=== PATIENT | female | born 1990 | race Caucasian/White ===

== ENCOUNTER 2018-02-06 18:18 | Emergency (ER) | payer MEDICAID ==
[~2018-02-06] VITALS: Ht 160 cm; Wt 87.1 kg
[2018-02-06 18:27] VITALS: BP 112/68
--- NOTE | 2018-02-06 19:01 | NUR ---
PT AMBULATED TO BED 8
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
--- NOTE | 2018-02-06 20:35 | NUR ---
PT TAKEN TO XR
[2018-02-06] MEDS ORDERED: ACETAMINOPHEN EXTRA STRENGTH 500 MG TAB PO ONE (20:55)
[2018-02-06] MEDS ORDERED: IBUPROFEN 600 MG TAB PO ONE (20:55)
[2018-02-06 21:23] VITALS: BP 114/72
--- NOTE | 2018-02-06 21:24 | NUR ---
Patient discharged with v/s stable. Written and verbal after care instructions given and explained. Patient alert, oriented and verbalized understanding of instructions. Ambulatory with steady gait. All questions addressed prior to discharge. ID band removed. Patient advised to follow up with PMD. Rx of NORCO, IBUPROFEN given. Patient educated on indication of medication including possible reaction and side effects. Opportunity to ask questions provided and answered.
== END 2018-02-06 21:23 | disposition home or self-care (01) ==
LOC: MED 18:18
DX: S23.41XA Sprain of ribs, initial encounter (principal); V43.52XA Car driver injured in collision with other type car in traffic accident, initial encounter; Y93.I9 Activity, other involving external motion; Y92.488 Other paved roadways as the place of occurrence of the external cause; Y99.8 Other external cause status
CPT/HCPCS: 71046; 81002; 81025; 99284

== ENCOUNTER 2018-03-13 17:17 | Emergency (ER) | payer MEDICAID ==
[~2018-03-13] VITALS: Ht 160 cm; Wt 81.6 kg
[2018-03-13 17:26] VITALS: BP 122/75
[2018-03-13 18:20] VITALS: BP 125/82
== END 2018-03-13 18:20 | disposition home or self-care (01) ==
LOC: MED 17:17
DX: J03.90 Acute tonsillitis, unspecified (principal)
CPT/HCPCS: 99283

== ENCOUNTER 2018-06-17 16:29 | Emergency (ER) | payer MEDICAID ==
[~2018-06-17] VITALS: Ht 160 cm; Wt 90.7 kg
[2018-06-17 16:40] VITALS: BP 111/60
--- NOTE | 2018-06-17 16:51 | NUR ---
PT TO ER BED 11
--- NOTE | 2018-06-17 17:00 | NUR ---
c/o right ear lobe pain ; earring in place moist cough, congestion. VSS; PATIENT POSITIONED FOR COMFORT; HOB ELEVATED; BEDRAILS UP X1; BED DOWN. ER MD MADE AWARE OF PT STATUS.
[2018-06-17] MEDS ORDERED: LIDOCAINE 1% 500 MG/50 ML VIAL INJ SCH (18:05)
[2018-06-17] MEDS ORDERED: ACETAMINOPHEN EXTRA STRENGTH 500 MG TAB PO ONE (18:05)
[2018-06-17] MEDS ORDERED: LIDOCAINE MPF 1% 5mL VIAL ONE (18:52)
--- NOTE | 2018-06-17 19:22 | NUR ---
report given to sharyn Turner
[2018-06-17] MEDS ORDERED: BACITRACIN OINT 500 UNITS/GM PKT TP ONE (19:25)
[2018-06-17 19:45] VITALS: BP 118/65
--- NOTE | 2018-06-17 19:45 | NUR ---
Patient discharged with v/s stable. Written and verbal after care instructions given and explained. Patient alert, oriented and verbalized understanding of instructions. Ambulatory with steady gait. All questions addressed prior to discharge. ID band removed. Patient advised to follow up with PMD. Rx of BACITRACIN 500UNIT/G TOPICAL OINTMENT, PROMETHAZINE DM 6.25MG-15MG/5ML SYRUP, AND KEFLEX 500 MG given. Patient educated on indication of medication including possible reaction and side effects. Opportunity to ask questions provided and answered.
== END 2018-06-17 19:45 | disposition home or self-care (01) ==
LOC: MED 16:29
DX: S00.451A Superficial foreign body of right ear, initial encounter (principal); J06.9 Acute upper respiratory infection, unspecified; X58.XXXA Exposure to other specified factors, initial encounter; Y93.89 Activity, other specified; Y92.89 Other specified places as the place of occurrence of the external cause; Y99.8 Other external cause status
CPT/HCPCS: 10120; 99284; J2001

== ENCOUNTER 2018-06-19 16:58 | Emergency (ER) | payer MEDICAID ==
[~2018-06-19] VITALS: Ht 160 cm; Wt 90.3 kg
[2018-06-19 17:15] VITALS: BP 104/68
--- NOTE | 2018-06-19 17:23 | NUR ---
PRESENTS TO ED FOR ALTERNATE MEDICATION THAT WAS PRESCRIBED BY DR. DAI ON SATURDAY. PT STATES PHARMACY TOLD HER THAT MED IS ON BACK ORDER. PT WANTS DIFFERENT PRESCRIPTION. HX: DENIES RX: AMOXICILLIN
--- NOTE | 2018-06-19 17:25 | NUR ---
Patient being evaluated by physician at bedside.
[2018-06-19 17:26] VITALS: BP 104/68
--- NOTE | 2018-06-19 17:27 | NUR ---
Patient discharged with v/s stable. Written and verbal after care instructions given and explained. Patient alert, oriented and verbalized understanding of instructions. Ambulatory with steady gait. All questions addressed prior to discharge. ID band removed. Patient advised to follow up with PMD. Rx of CODEINE PHOSPHATE/PROMETHAZINE given. Patient educated on indication of medication including possible reaction and side effects. Opportunity to ask questions provided and answered.
== END 2018-06-19 17:27 | disposition home or self-care (01) ==
LOC: MED 16:58
DX: Z76.0 Encounter for issue of repeat prescription (principal)
CPT/HCPCS: 99283

== ENCOUNTER 2018-10-01 07:16 | Emergency (ER) | payer MEDICAID ==
[~2018-10-01] VITALS: Ht 160 cm; Wt 92.5 kg
[2018-10-01 07:21] VITALS: BP 121/83
--- NOTE | 2018-10-01 07:43 | NUR ---
PATIENT PRESENTS TO ED WITH C/O COUGH X 4 DAYS. +BODYACHES, +DIARRHEA, +NAUSEA. DENIES FEVER; ORAL TEMP 98.4 AT THIS TIME. PT STATES CHEST HURTS WHEN COUGHING. PAIN LEVEL OF 8/10; VSS; PATIENT POSITIONED FOR COMFORT; HOB ELEVATED; BEDRAILS UP X1; BED DOWN. ER MD TO EVALUATE PT.
--- NOTE | 2018-10-01 07:44 | NUR ---
Dr Razo evaluating pt at this time.
[2018-10-01] MEDS ORDERED: ALBUTEROL 0.083% 2.5 MG/3 ML NEBU INH ONE (07:45)
[2018-10-01] MEDS ORDERED: predniSONE 20 MG TAB PO ONE (07:45)
--- NOTE | 2018-10-01 08:00 | NUR ---
Respiratory Therapist at bedside for breathing treatment.
--- NOTE | 2018-10-01 08:01 | NUR ---
ADMITTING DX: COUGH HX: DENIES ASTMA COPD AWAKE AND ALERT VERBALLY RESPONSIVE EDUCATION PROVIDED WOTH ACKNOWLEDGEMENT ON HHN THERAPY AND RESPIRATORY DRUG FOREMENTIONED GIVEN ORDERED ENCOURAGED PATIENT FOR INTERMITTENT DEEP BREATHING DURING THERAPY
[2018-10-01 08:04] LABS: APPEARANCE,URINE HAZY (CLEAR); BILIRUBIN,URINE NEGATIVE (NEGATIVE); BLOOD, URINE 1+ (NEGATIVE); COLOR,URINE ORANGE (YELLOW); LEUKOCYTE ESTERASE ,URINE 1+ (NEGATIVE); NITRITE, URINE NEGATIVE (NEGATIVE); UGLUCOSE NEGATIVE (NEGATIVE)
[2018-10-01 08:20] LABS: RBC,URINE 0-5 /HPF (0-5); WBC,URINE 0-5 /HPF (0-5)
--- NOTE | 2018-10-01 09:08 | NUR ---
REPORT GIVEN TO MISHA DOMINGO. TRANSFER OF CARE AT THIS TIME.
--- NOTE | 2018-10-01 09:46 | NUR ---
Patient discharged with v/s stable. Written and verbal after care instructions given and explained. Patient alert, oriented and verbalized understanding of instructions. Ambulatory with steady gait. All questions addressed prior to discharge. Patient advised to follow up with PMD. Rx of Prednisone and Albuterol given. Patient educated on indication of medication including possible reaction and side effects. Opportunity to ask questions provided and answered.
[2018-10-01 09:47] VITALS: BP 113/56
== END 2018-10-01 09:46 | disposition home or self-care (01) ==
LOC: MED 07:16
DX: J06.9 Acute upper respiratory infection, unspecified (principal); Z86.73 Personal history of transient ischemic attack (TIA), and cerebral infarction without residual deficits; Z79.899 Other long term (current) drug therapy
CPT/HCPCS: 71045; 81001; 81025; 87086; 94640; 99284; J7512; J7613; Q0092

== ENCOUNTER 2018-12-29 16:32 | Emergency (ER) | payer MEDICAID ==
[~2018-12-29] VITALS: Ht 160 cm; Wt 92.2 kg
[2018-12-29 16:53] VITALS: BP 123/50
[2018-12-29 19:41] LABS: BASOPHILS # (AUTO) 0.1 K/uL (0.00-0.22); BASOPHILS % (AUTO) 0.7 % (0.0-2.0); EOSINOPHILS # (AUTO) 0.1 K/uL (0-0.4); EOSINOPHILS % (AUTO) 0.9 % (0.0-4.0); HEMOGLOBIN 13.5 g/dL (12.0-16.0); LYMPHOCYTES # (AUTO) 2.3 K/uL (2.5-16.5); LYMPHOCYTES % (AUTO) 22.4 % (20.5-51.1); MEAN CORPUSCULAR HEMOGLOBIN 32 pg (27-31); MEAN CORPUSCULAR HGB CONC 33 g/dL (33-37); MEAN CORPUSCULAR VOLUME 95.3 fL (80-94); MONOCYTES # (AUTO) 0.5 K/uL (0.8-1.0); MONOCYTES % (AUTO) 4.7 % (1.7-9.3); NEUTROPHILS # (AUTO) 7.3 K/uL (1.8-7.7); NEUTROPHILS % (AUTO) 71.3 % (42.2-75.2); PLATELET COUNT (AUTO) 246 K/uL (140-450); RED CELL DISTRIBUTION WIDTH 13.8 % (11.6-13.7); WHITE BLOOD COUNT (AUTO) 10.2 K/uL (4.8-10.8)
[2018-12-29 20:08] LABS: ALBUMIN 3.7 g/dL (3.4-5.0); ANION GAP 13.8 (8-16); CARBON DIOXIDE 25.3 mmol/L (21-32); CREATININE 0.9 mg/dL (0.6-1.3); POTASSIUM 4.1 mmol/L (3.5-5.1); TOTAL BILIRUBIN 0.3 mg/dL (0.0-1.0)
[2018-12-29] MEDS ORDERED: CYCLOBENZAPRINE 10 MG TAB PO ONE (21:25)
[2018-12-29] MEDS ORDERED: KETOROLAC 30 MG/ML VIAL IM ONE (21:25)
[2018-12-29] MEDS ORDERED: ACETAMINOPHEN EXTRA STRENGTH 500 MG TAB PO STA (21:32)
[2018-12-29 21:52] VITALS: BP 131/65
== END 2018-12-29 21:52 | disposition home or self-care (01) ==
LOC: MED 16:32
DX: R10.9 Unspecified abdominal pain (principal); M54.5 Low back pain; Z86.79 Personal history of other diseases of the circulatory system
CPT/HCPCS: 36415; 80053; 83690; 85025; 99283; J1885

== ENCOUNTER 2019-10-19 07:12 | Emergency (ER) | payer MEDICAID ==
[~2019-10-19] VITALS: Ht 160 cm; Wt 88.9 kg
[2019-10-19 07:25] VITALS: BP 121/83
--- NOTE | 2019-10-19 07:35 | NUR ---
29 YO FEMALE CO LOWER BACK PAIN SINCE TODAY. PT STATES THAT SHE WAS DRINKING HEAVILY THIS WEEKEND AND DID NOT DRINK ANY WATER. PAIN IS 10/10 ON LOWER BACK BOTH SIDES. NO PAIN WITH URINATION. NO PMH AND NO RX MEDS.
[2019-10-19] MEDS ORDERED: KETOROLAC 60 MG/2 ML VIAL IM ONE (07:45)
[2019-10-19] MEDS ORDERED: ACETAMINOPHEN EXTRA STRENGTH 500 MG TAB PO ONE (08:40)
[2019-10-19 09:38] LABS: APPEARANCE,URINE HAZY (CLEAR); BILIRUBIN,URINE NEGATIVE (NEGATIVE); BLOOD, URINE 1+ (NEGATIVE); COLOR,URINE YELLOW (YELLOW); LEUKOCYTE ESTERASE ,URINE NEGATIVE (NEGATIVE); NITRITE, URINE NEGATIVE (NEGATIVE); UGLUCOSE NEGATIVE (NEGATIVE); WBC,URINE 0-5 /HPF (0-5)
[2019-10-19 09:54] VITALS: BP 121/83
--- NOTE | 2019-10-19 09:54 | NUR ---
Patient discharged with v/s stable. Written and verbal after care instructions given and explained. Patient alert, oriented and verbalized understanding of instructions. Ambulatory with steady gait. All questions addressed prior to discharge. ID band removed. Patient advised to follow up with PMD. Rx of BACTRIM AND NAPROSYN given. Patient educated on indication of medication including possible reaction and side effects. Opportunity to ask questions provided and answered.
== END 2019-10-19 09:54 | disposition home or self-care (01) ==
LOC: MED 07:12
DX: R35.0 Frequency of micturition (principal); F12.10 Cannabis abuse, uncomplicated; R01.1 Cardiac murmur, unspecified
CPT/HCPCS: 81001; 81025; 96372; 99283; J1885

== ENCOUNTER 2019-12-16 09:00 | Emergency (ER) | payer MEDICAID ==
[~2019-12-16] VITALS: Ht 160 cm; Wt 85.3 kg
--- NOTE | 2019-12-16 09:12 | NUR ---
PT AMBULATED TO ER BED 05
[2019-12-16 09:15] VITALS: BP 114/73
--- NOTE | 2019-12-16 09:25 | NUR ---
DR VAN AT BEDSIDE
[2019-12-16] MEDS ORDERED: NACL 0.9% 1,000 ML IV ONE ×2 (09:30→10:50)
--- NOTE | 2019-12-16 09:30 | NUR ---
PT C/O N/V/D WITH LOWER ABDOMINAL DISCOMFORT. [facility] TEST WAS POSITIVE 2 WEEKS AGO. LMP BEGINNING OF OCTOBER. 5, 1 , 4 LIVING. 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 DENIES VAGINAL BLEEDING.
--- NOTE | 2019-12-16 09:42 | NUR ---
IV INSERTED AND LABS DRAWN BEDSIDE, NACL BOLUS STARTED
[2019-12-16 09:47] LABS: BASOPHILS # (AUTO) 0.1 K/uL (0.00-0.22); BASOPHILS % (AUTO) 1.1 % (0.0-2.0); EOSINOPHILS # (AUTO) 0.1 K/uL (0-0.4); EOSINOPHILS % (AUTO) 0.9 % (0.0-4.0); HEMATOCRIT 38.9 % (36-48); LYMPHOCYTES # (AUTO) 1.8 K/uL (2.5-16.5); LYMPHOCYTES % (AUTO) 21.8 % (20.5-51.1); MEAN CORPUSCULAR HEMOGLOBIN 32 pg (27-31); MEAN CORPUSCULAR HGB CONC 33 g/dL (33-37); MEAN CORPUSCULAR VOLUME 94.8 fL (80-94); MONOCYTES # (AUTO) 0.5 K/uL (0.8-1.0); MONOCYTES % (AUTO) 6.6 % (1.7-9.3); NEUTROPHILS # (AUTO) 5.7 K/uL (1.8-7.7); NEUTROPHILS % (AUTO) 69.6 % (42.2-75.2); PLATELET COUNT (AUTO) 224 K/uL (140-450); RED BLOOD CELL COUNT(AUTO) 4.11 MIL/uL (4.20-5.40); RED CELL DISTRIBUTION WIDTH 13.5 % (11.6-13.7); WHITE BLOOD COUNT (AUTO) 8.2 K/uL (4.8-10.8)
[2019-12-16 10:06] LABS: ALBUMIN 3.7 g/dL (3.4-5.0); ANION GAP 15.3 (8-16); CARBON DIOXIDE 22.9 mmol/L (21-32); CREATININE 0.8 mg/dL (0.6-1.3); POTASSIUM 4.2 mmol/L (3.5-5.1); TOTAL BILIRUBIN 0.6 mg/dL (0.0-1.0)
[2019-12-16 10:07] LABS: APPEARANCE,URINE HAZY (CLEAR); BILIRUBIN,URINE NEGATIVE (NEGATIVE); BLOOD, URINE 3+ (NEGATIVE); COLOR,URINE YELLOW (YELLOW); LEUKOCYTE ESTERASE ,URINE 3+ (NEGATIVE); NITRITE, URINE NEGATIVE (NEGATIVE); PH,URINE 7.5 (5.0-9.0); UGLUCOSE NEGATIVE (NEGATIVE)
--- NOTE | 2019-12-16 10:22 | NUR ---
PT STATES SOME RELIEF FROM NAUSEA, STATES SHE IS HUNGRY. INSTRUCTED TO WAIT FOR US RESULTS
--- NOTE | 2019-12-16 10:22 | NUR ---
PT INSTRUCTED THAT MORE URINE IS REQUIRED FOR CULTURE
--- NOTE | 2019-12-16 11:23 | NUR ---
PT STATES HER IV IS PAINFUL, IV REMOVED. PT STATES SHE DOESNT WANT SECOND BOLUS OF FLUIDS
--- NOTE | 2019-12-16 12:31 | NUR ---
VS STABLE. PT WAITING FOR US RESULTS
[2019-12-16] MEDS ORDERED: ACETAMINOPHEN 325 MG TAB PO ONE (13:00)
--- NOTE | 2019-12-16 13:30 | NUR ---
TYLENOL PO ADMINISTERED. PT TOLERATING WATER AND JELLO AT THIS TIME Addendum: 12/16/19 at 1338 by [email or web address] PT STATES LOWER AB CRAMPING
[2019-12-16] MEDS ORDERED: METOCLOPRAMIDE 10 MG/2 ML INJ VIAL IVP ONE (14:00)
--- NOTE | 2019-12-16 14:02 | NUR ---
PT STATES SHE JUST VOMITED IN RESTROOM, DR VAN NOTIFIED
[2019-12-16] MEDS ORDERED: METOCLOPRAMIDE 10 MG TAB PO ONE (14:05)
--- NOTE | 2019-12-16 14:49 | NUR ---
NADR, PAIN 05/18
--- NOTE | 2019-12-16 14:50 | NUR ---
PT TOLERATING CRACKERS AT THIS TIME
[2019-12-16 15:00] VITALS: BP 105/60
--- NOTE | 2019-12-16 15:00 | NUR ---
Patient discharged with v/s stable. Written and verbal after care instructions given and explained. Patient alert, oriented and verbalized understanding of instructions. Ambulatory with steady gait. All questions addressed prior to discharge. ID band removed. Patient advised to follow up with PMD. Rx of DICLEGIS given. Patient educated on indication of medication including possible reaction and side effects. Opportunity to ask questions provided and answered. PT GIVEN COPY OF US RESULTS AND INSTRUCTED TO TAKE WITH TO [facility] TOMORROW PT GIVEN EXCUSE FOR WORK THROUGH 12/19
== END 2019-12-16 15:00 | disposition home or self-care (01) ==
LOC: MED 09:00
DX: O21.0 Mild hyperemesis gravidarum (principal); Z3A.01 Less than 8 weeks gestation of pregnancy
CPT/HCPCS: 36415; 76801; 76830; 80053; 81001; 81025; 84702; 85025; 87086; 96360; 99285; J7030; J8597; Q0092

== ENCOUNTER 2020-04-24 00:22 | Emergency (ER) | payer MEDICAID, SELFPAY ==
[~2020-04-24] VITALS: Ht 160 cm; Wt 81.6 kg
[2020-04-24 00:35] VITALS: BP 105/66
--- NOTE | 2020-04-24 00:35 | NUR ---
DILEEP FUNEZ TAKEN TO BED #9
[2020-04-24] MEDS ORDERED: NACL 0.9% 1,000 ML IV ONE (00:45)
[2020-04-24] MEDS ORDERED: diphenhydrAMINE 50 MG/ML VIAL IVP ONE (00:45)
[2020-04-24] MEDS ORDERED: EPINEPHrine 1:1000 - 1 MG/ML AMP IM ONE (00:45)
[2020-04-24] MEDS ORDERED: methylPREDNISolone SS 125 MG/2 ML VIAL IVP ONE (00:45)
--- NOTE | 2020-04-24 00:45 | NUR ---
COVERING PRIMARY RN FOR LUNCH RELIEF--- SEE COMPLETE ASSESSMENT
--- NOTE | 2020-04-24 01:37 | NUR ---
PATIENT AMBULATED TO RESTROOM WITH STEADY GAIT.
--- NOTE | 2020-04-24 01:38 | NUR ---
ERMD ASSESSING PATIENT AT BEDSIDE.
[2020-04-24] MEDS ORDERED: ALBUTEROL 0.083% 2.5 MG/3 ML NEBU INH ONE (01:55)
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
[2020-04-24 05:07] VITALS: BP 99/57
--- NOTE | 2020-04-24 05:07 | NUR ---
Patient discharged with v/s stable. Written and verbal after care instructions given and explained. Patient alert, oriented and verbalized understanding of instructions. Ambulatory with steady gait. All questions addressed prior to discharge. ID band removed. Patient advised to follow up with PMD. Rx of BENADRYL, EPIPEN, PEPCID, AND PREDNISONE given. Patient educated on indication of medication including possible reaction and side effects. Opportunity to ask questions provided and answered.
== END 2020-04-24 05:07 | disposition home or self-care (01) ==
LOC: MED 00:22
DX: T78.49XA Other allergy, initial encounter (principal); I51.9 Heart disease, unspecified; X58.XXXA Exposure to other specified factors, initial encounter
CPT/HCPCS: 94640; 96361; 96372; 96374; 96375; 99285; J0171; J1200; J2930; J7613; J7030

== ENCOUNTER 2020-07-01 15:16 | Emergency (ER) | payer MEDICAID, SELFPAY ==
[~2020-07-01] VITALS: Ht 160 cm; Wt 81.2 kg
[2020-07-01 15:31] VITALS: BP 114/66
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
--- NOTE | 2020-07-01 15:44 | NUR ---
PT AMBULATED TO BED 08.
--- NOTE | 2020-07-01 15:52 | NUR ---
PA AT BEDSIDE
--- NOTE | 2020-07-01 16:33 | NUR ---
US AT BEDSIDE.
[2020-07-01] MEDS ORDERED: CEPH500C16 PO (17:13)
[2020-07-01 17:20] VITALS: BP 116/69
== END 2020-07-01 17:20 | disposition home or self-care (01) ==
LOC: MED 15:16
DX: O23.41 Unspecified infection of urinary tract in pregnancy, first trimester (principal); I51.9 Heart disease, unspecified; Z3A.01 Less than 8 weeks gestation of pregnancy
CPT/HCPCS: 76817; 81002; 81025; 99284

== ENCOUNTER 2020-07-21 02:20 | Emergency (ER) | payer MEDICAID, SELFPAY ==
[~2020-07-21] VITALS: Ht 160 cm; Wt 79.8 kg
[~2020-07-21 02:20] MED LIST: CEPH500C16 PO
[2020-07-21 02:38] VITALS: BP 121/72
--- NOTE | 2020-07-21 02:50 | NUR ---
PATIENT AMBULATED TO BED 11.
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
--- NOTE | 2020-07-21 03:09 | NUR ---
CALLED AND SPOKE WITH SALES PROFESSIONAL [employer] AT [facility] WHO REPORTS THEY WILL BE SENDING AN OFFICER OUT IN AREA TO FILE REPORT.
--- NOTE | 2020-07-21 03:30 | NUR ---
ERMD AT BEDSIDE PERFORMING ULTRASOUND.
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
[2020-07-21] MEDS ORDERED: ACET-9882 PO (03:44)
[2020-07-21] MEDS ORDERED: ACETAMINOPHEN 325 MG TAB PO ONE (03:45)
--- NOTE | 2020-07-21 03:55 | NUR ---
PATIENT ONLY TOOK TYLENOL 325 MG D/T PATIENT STATING "THE CHALKY TEXTURE MAKES ME NAUSEOUS." ERMD AWARE.
[2020-07-21 04:06] VITALS: BP 121/72
--- NOTE | 2020-07-21 04:08 | NUR ---
SPOKE WITH [employer] [employer], AND LET HER KNOW THAT PATIENT DECIDED TO CALL [facility] IN THE MORNING TO FILE REPORT, RATHER THAN WAIT.
== END 2020-07-21 04:06 | disposition home or self-care (01) ==
LOC: MED 02:20
DX: O26.891 Other specified pregnancy related conditions, first trimester (principal); S00.531A Contusion of lip, initial encounter; I51.9 Heart disease, unspecified; Z3A.10 10 weeks gestation of pregnancy; Y04.8XXA Assault by other bodily force, initial encounter; Y93.89 Activity, other specified; Y92.89 Other specified places as the place of occurrence of the external cause; Y99.8 Other external cause status
CPT/HCPCS: 99284

== ENCOUNTER 2021-01-07 11:00 | Observation (INO) | payer MEDICAID ==
[~2021-01-07] VITALS: Ht 160 cm; Wt 86.2 kg
[~2021-01-07 11:00] MED LIST changes: +ACET-9882 PO
[2021-01-07 13:08] LABS: BASOPHILS # (AUTO) 0.3 K/uL (0.00-0.22); BASOPHILS % (AUTO) 3.1 % (0.0-2.0); EOSINOPHILS % (AUTO) 0.4 % (0.0-4.0); HEMATOCRIT 32.8 % (36-48); HEMOGLOBIN 11.1 g/dL (12.0-16.0); LYMPHOCYTES # (AUTO) 1.3 K/uL (2.5-16.5); LYMPHOCYTES % (AUTO) 14.2 % (20.5-51.1); MEAN CORPUSCULAR HEMOGLOBIN 31 pg (27-31); MEAN CORPUSCULAR HGB CONC 34 g/dL (33-37); MEAN CORPUSCULAR VOLUME 91.8 fL (80-94); MONOCYTES # (AUTO) 0.7 K/uL (0.8-1.0); MONOCYTES % (AUTO) 7.4 % (1.7-9.3); NEUTROPHILS # (AUTO) 6.6 K/uL (1.8-7.7); NEUTROPHILS % (AUTO) 74.9 % (42.2-75.2); PLATELET COUNT (AUTO) 174 K/uL (140-450); RED BLOOD CELL COUNT(AUTO) 3.57 MIL/uL (4.20-5.40); RED CELL DISTRIBUTION WIDTH 14.3 % (11.6-13.7); WHITE BLOOD COUNT (AUTO) 8.8 K/uL (4.8-10.8)
[2021-01-07 13:22] VITALS: BP 100/59
== END 2021-01-07 14:15 | disposition home or self-care (01) ==
LOC: MLD 11:00
PROVIDERS: ADMIT Obstetrics & Gynecology; ATTEND Obstetrics & Gynecology
DX: O26.893 Other specified pregnancy related conditions, third trimester (principal); R10.9 Unspecified abdominal pain; Z3A.33 33 weeks gestation of pregnancy
CPT/HCPCS: 36415; 59025; 76805; 81000; 85025; 85384; 86886; 86900; 86901; G0378; Q0092